=== PATIENT | female | born 1975 | race Caucasian/White ===

== ENCOUNTER 2017-04-27 21:44 | Emergency (ER) | payer MEDICAID, OTHER ==
[~2017-04-27] VITALS: Ht 167.6 cm; Wt 78.5 kg
[~2017-04-27 21:44] MED LIST: HYDR-569 PO
[2017-04-27 21:49] VITALS: BP 132/75
[2017-04-27] MEDS ORDERED: ibuprofen tablet 400 MG TABLET PO ONE (22:05)
[2017-04-27] MEDS ORDERED: LORazepam 1 MG tablet PO ONE (22:05)
[2017-04-27] MEDS ORDERED: TETanus/Pertussis (Acell)/Diphther VAC/PF (Tdap-Adult) 0.5ml syringe IMVAC ONE (22:05)
[2017-04-27] MEDS ORDERED: LIDOcaine 1% 30ml preserv. free vial IJ ONE (22:05)
[2017-04-27] MEDS ORDERED: sulfamethoxazole/trimethoprim DS (800/160mg) tablet PO ONE (22:05)
[2017-04-27] MEDS ORDERED: HYDROcodone/acetaminophen 10/325mg tab PO ONE (22:05)
[2017-04-27] MEDS ORDERED: cephalexin 250mg capsule PO ONE (22:10)
[2017-04-27] MEDS ORDERED: ONDA4TAB12 PO (23:58)
[2017-04-27] MEDS ORDERED: CEPH500C2 PO (23:58)
[2017-04-27] MEDS ORDERED: TRAM50TA2 PO (23:58)
[2017-04-27] MEDS ORDERED: BACDS PO (23:58)
== END 2017-04-28 00:05 | disposition home or self-care (01) ==
LOC: ER 21:44
DX: L02.215 Cutaneous abscess of perineum (principal); F15.10 Other stimulant abuse, uncomplicated; Z88.6 Allergy status to analgesic agent; Z88.0 Allergy status to penicillin
CPT/HCPCS: 56405; 90471; 90715; 99284; A6449; J3490

== ENCOUNTER 2019-10-06 06:59 | Emergency (ER) | payer MEDICAID, OTHER ==
[~2019-10-06] VITALS: Ht 170.2 cm; Wt 64.0 kg
[~2019-10-06 06:59] MED LIST changes: +HYDR-4383 PO; -HYDR-569 PO; +ONDA4TAB12 PO
[2019-10-06] MEDS ORDERED: ketorolac trometh inj. 60 MG/2 ML VIAL IM ONE (07:10)
[2019-10-06 07:27] LABS: URINE HCG NEGATIVE (NEG)
[2019-10-06 07:29] LABS: CLARITY,URINE CLOUDY (Clear); COLOR,URINE YELLOW (Yellow); GLUCOSE, URINE NEGATIVE (Neg); KETONES,URINE NEGATIVE (Neg); LEUKOCYTE ESTERASE ,URINE MODERATE (Neg); NITRITES, URINE POSITIVE (Neg); OCCULT BLOOD,URINE NEGATIVE (Neg); PROTEIN,URINE TRACE mg/dl (Neg); UROBILINOGEN,URINE 0.2 E.U/dL (0.2-1.0)
[2019-10-06 07:34] LABS: UA COLLECTION TYPE CLN CATCH MIDSTREAM
[2019-10-06 07:38] LABS: BACTERIA,URINE 4+ /HPF (Neg); RBC,URINE 0-2 /HPF (0-2); SQUAMOUS EPITHELIAL CELL,UR FEW /LPF (FEW); WBC,URINE 50-100 /HPF (0-4)
[2019-10-06 07:42] LABS: HYALINE CASTS 0-3 /LPF (NEGATIVE)
[2019-10-06 07:43] LABS: CAL OXALATE CRYSTALS FEW /HPF (NEGATIVE)
[2019-10-06 07:50] LABS: BASOPHILS % (AUTO) 0.7 % (0-1); EOSINOPHILS % (AUTO) 0.7 % (0-6); HEMATOCRIT 26.8 % (35.0-45.0); HEMOGLOBIN 8.4 g/dl (12.0-16.0); LYMPHOCYTES % (AUTO) 17.3 % (21-51); MEAN CORPUSCULAR HEMOGLOBIN 23.2 PG (27.0-31.0); MEAN CORPUSCULAR HGB CONC 31.5 g/dL (33.0-36.5); MEAN CORPUSCULAR VOLUME 73.7 FL (78-98); MEAN PLATELET VOLUME 6.8 FL (7.4-10.4); MONOCYTES # (AUTO) 0.5 X10'3 (0-0.9); MONOCYTES % (AUTO) 8.2 % (2-12); NEUTROPHILS # (AUTO) 4.3 X10'3 (1.8-7.7); NEUTROPHILS % (AUTO) 73.1 % (42-75); PLATELET COUNT 313 X10'3 (140-440); RED BLOOD COUNT 3.63 X10'6 (4.20-5.60); RED CELL DISTRIBUTION WIDTH 20.6 % (11.5-14.5); WHITE BLOOD COUNT 5.9 X10'3 (4.5-11.0)
[2019-10-06 08:04] LABS: ALANINE AMINOTRANSFERASE 15 U/L (12-78); ALBUMIN 3.2 G/DL (3.4-5.0); ALBUMIN/GLOBULIN RATIO 1.1 (1.1-1.5); ALKALINE PHOSPHATASE 73 IU/L (46-116); ANION GAP 6 (8-16); ASPARTATE AMINO TRANSFERASE 12 U/L (10-37); BILIRUBIN,TOTAL 0.2 MG/DL (0.1-1.0); BLOOD UREA NITROGEN 13 MG/DL (7-18); BUN/CREATININE RATIO 18.1 (6.6-38.0); CALCIUM 8.4 MG/DL (8.5-10.1); CHLORIDE 108 MMOL/L (99-107); CREATININE 0.72 MG/DL (0.40-0.90); GLUCOSE 89 MG/DL (70-104); LIPASE 118 U/L (73-393); POTASSIUM 3.7 MMOL/L (3.5-5.1); SODIUM 139 MMOL/L (135-145); TOTAL CARBON DIOXIDE 24.8 MMOL/L (24-32); TOTAL PROTEIN 6.2 G/DL (6.4-8.2); eGFR 89 ML/MIN
[2019-10-06 08:12] VITALS: BP 125/72
[2019-10-06] MEDS ORDERED: SULF1TAB49 PO (08:49)
[2019-10-06 09:03] LABS: PLATELET ESTIMATE NORMAL
[2019-10-06 09:04] LABS: ANISOCYTOSIS 3+; MICROCYTOSIS 1+; SCHISTOCYTES FEW
== END 2019-10-06 09:20 | disposition home or self-care (01) ==
LOC: ER 06:59
DX: N12 Tubulo-interstitial nephritis, not specified as acute or chronic (principal); R11.0 Nausea; R10.31 Right lower quadrant pain; G89.29 Other chronic pain; F15.90 Other stimulant use, unspecified, uncomplicated; Z90.710 Acquired absence of both cervix and uterus; Z56.0 Unemployment, unspecified; Z59.0 Homelessness; Z88.0 Allergy status to penicillin; Z88.8 Allergy status to other drugs, medicaments and biological substances; Z79.2 Long term (current) use of antibiotics; Z79.899 Other long term (current) drug therapy
CPT/HCPCS: 36415; 74176; 80053; 81001; 81025; 83690; 85025; 87088; 96372; 99284; J1885; 87077; 87186

== ENCOUNTER 2019-10-20 22:34 | Emergency (ER) | payer MEDICAID, OTHER ==
[~2019-10-20] VITALS: Ht 162.6 cm; Wt 75.0 kg
[2019-10-20 22:36] VITALS: BP 116/38
[2019-10-20] MEDS ORDERED: CYCL-1 PO (22:53)
[2019-10-20] MEDS ORDERED: ALBU8HFA PO (22:54)
[2019-10-20] MEDS ORDERED: ketorolac tromethamine 15mg/ml inj. IM ONE (22:55)
== END 2019-10-20 23:08 | disposition home or self-care (01) ==
LOC: ER 22:35
DX: S16.1XXA Strain of muscle, fascia and tendon at neck level, initial encounter (principal); S29.019A Strain of muscle and tendon of unspecified wall of thorax, initial encounter; M54.2 Cervicalgia; G89.29 Other chronic pain; F15.90 Other stimulant use, unspecified, uncomplicated; Z90.710 Acquired absence of both cervix and uterus; Z56.0 Unemployment, unspecified; Z59.0 Homelessness; Z88.0 Allergy status to penicillin; Z88.8 Allergy status to other drugs, medicaments and biological substances; Z79.899 Other long term (current) drug therapy; X58.XXXA Exposure to other specified factors, initial encounter; Y93.89 Activity, other specified; Y92.89 Other specified places as the place of occurrence of the external cause; Y99.8 Other external cause status
CPT/HCPCS: 96372; 99283; J1885

== ENCOUNTER 2023-01-17 12:53 | Emergency (ER) | payer MEDICAID, OTHER ==
[~2023-01-17] VITALS: Ht 167.6 cm; Wt 78.1 kg
[~2023-01-17 12:53] MED LIST changes: +CYCL-1 PO
[2023-01-17] MEDS ORDERED: acetaminophen 325mg tablet PO ONE (13:20)
[2023-01-17] MEDS ORDERED: ketorolac trometh. 30mg/ml inj. IM ONE (14:55)
[2023-01-17 15:47] LABS: BILIRUBIN,URINE SMALL (Neg); CLARITY,URINE CLOUDY (Clear); COLOR,URINE YELLOW (Yellow); GLUCOSE, URINE NEGATIVE (Neg); KETONES,URINE TRACE mg/dl (Neg); LEUKOCYTE ESTERASE ,URINE MODERATE (Neg); NITRITES, URINE POSITIVE (Neg); OCCULT BLOOD,URINE TRACE-INTACT (Neg); PROTEIN,URINE 100 mg/dl (Neg)
[2023-01-17 16:02] LABS: SQUAMOUS EPITHELIAL CELL,UR MANY /LPF (FEW); UA COLLECTION TYPE NON-SPECIFIED
[2023-01-17 16:03] LABS: BACTERIA,URINE 4+ /HPF (Neg); WBC,URINE TNTC /HPF (0-4)
[2023-01-17 16:04] LABS: YEAST FEW /HPF (NEGATIVE)
[2023-01-17] MEDS ORDERED: normal saline 1000ML IV soln IV ONE (16:05)
--- NOTE | 2023-01-17 16:35 | NUR ---
REPEAT [facility] SENT
[2023-01-17 16:41] LABS: BASOPHILS % (AUTO) 0.2 % (0-1); EOSINOPHILS % (AUTO) 0.1 % (0-6); HEMATOCRIT 37.6 % (35.0-45.0); HEMOGLOBIN 12.4 g/dl (12.0-16.0); LYMPHOCYTES # (AUTO) 1.2 X10'3 (1.1-4.8); MEAN CORPUSCULAR HEMOGLOBIN 28.7 PG (27.0-31.0); MEAN CORPUSCULAR VOLUME 86.8 FL (78-98); MEAN PLATELET VOLUME 7.1 FL (7.4-10.4); MONOCYTES # (AUTO) 0.8 X10'3 (0-0.9); MONOCYTES % (AUTO) 7.6 % (2-12); NEUTROPHILS # (AUTO) 8.7 X10'3 (1.8-7.7); NEUTROPHILS % (AUTO) 81.1 % (42-75); PLATELET COUNT 355 X10'3 (140-440); RED BLOOD COUNT 4.33 X10'6 (4.20-5.60); RED CELL DISTRIBUTION WIDTH 13.6 % (11.5-14.5); WHITE BLOOD COUNT 10.7 X10'3 (4.5-11.0)
[2023-01-17 16:56] LABS: ALANINE AMINOTRANSFERASE 9 U/L (12-78); ALBUMIN 2.9 G/DL (3.4-5.0); ALBUMIN/GLOBULIN RATIO 0.8 (1.1-1.5); ALKALINE PHOSPHATASE 98 IU/L (46-116); ANION GAP 8 (8-16); ASPARTATE AMINO TRANSFERASE 12 U/L (10-37); BILIRUBIN,TOTAL 0.7 MG/DL (0.1-1.0); BLOOD UREA NITROGEN 8 MG/DL (7-18); CALCIUM 8.8 MG/DL (8.5-10.1); CHLORIDE 99 MMOL/L (99-107); CREATININE 0.89 MG/DL (0.40-0.90); GLUCOSE 101 MG/DL (70-104); POTASSIUM 3.3 MMOL/L (3.5-5.1); SODIUM 134 MMOL/L (135-145); TOTAL CARBON DIOXIDE 27.1 MMOL/L (24-32); TOTAL PROTEIN 6.7 G/DL (6.4-8.2); eCRCL 75 ML/MIN; eGFR 69 ML/MIN
[2023-01-17] MEDS ORDERED: potassium Cl 20 mEq SR tablet PO ONE (17:25)
[2023-01-17 17:30] LABS: BILIRUBIN,URINE NEGATIVE (Neg); CLARITY,URINE CLOUDY (Clear); COLOR,URINE YELLOW (Yellow); GLUCOSE, URINE NEGATIVE (Neg); KETONES,URINE NEGATIVE (Neg); LEUKOCYTE ESTERASE ,URINE LARGE (Neg); NITRITES, URINE POSITIVE (Neg); OCCULT BLOOD,URINE TRACE-INTACT (Neg); PROTEIN,URINE 30 mg/dl (Neg)
[2023-01-17 17:35] LABS: UA COLLECTION TYPE CLN CATCH MIDSTREAM
[2023-01-17 17:36] LABS: WBC,URINE TNTC /HPF (0-4)
[2023-01-17 17:37] LABS: BACTERIA,URINE 4+ /HPF (Neg); TRICHOMONAS,URINE MANY /HPF (NEGATIVE)
[2023-01-17 17:41] LABS: RENAL CELLS, URINE FEW /HPF; TRANSITIONAL EPI CELLS,URINE MODERATE /HPF
[2023-01-17 17:42] LABS: SQUAMOUS EPITHELIAL CELL,UR MANY /LPF (FEW)
[2023-01-17] MEDS ORDERED: sulfamethoxazole/trimethoprim DS (800/160mg) tablet PO ONE (17:50)
[2023-01-17] MEDS ORDERED: SULF1TAB45 PO (17:55)
--- NOTE | 2023-01-17 19:11 | NUR ---
AGREE WITH HUSSAIN, CANDY SP[employer] HELPER ASSESSMENT, REVIEWED
[2023-01-17 19:23] VITALS: BP 150/64; PULSE 84; RESP 18; TEMP 98.4; O2SAT 100
== END 2023-01-17 19:26 | disposition home or self-care (01) ==
LOC: ER 12:54
DX: J06.9 Acute upper respiratory infection, unspecified (principal); B34.9 Viral infection, unspecified; Z20.822 Contact with and (suspected) exposure to COVID-19; N39.0 Urinary tract infection, site not specified; E87.6 Hypokalemia
CPT/HCPCS: 36415; 71045; 80053; 81001; 83605; 84145; 85025; 87040; 87502; 87503; 87811; 96372; 99284; J1885; J7030